=== PATIENT | male | born 1980 | race Caucasian/White ===

== ENCOUNTER → 2022-07-25 13:53 | Outpatient (CLI) | payer OTHER, SELFPAY ==
--- NOTE | 2022-07-25 | DI.MRI.S_ITS ---
PROCEDURE: MR SHOULDER LT WO/W CON INDICATIONS: Pain in left shoulder TECHNIQUE: Noncontrast oblique coronal T1 spin echo and T2 fast spin echo with fat saturation, oblique sagittal T1 spin echo and T2 fast spin echo with fat saturation, axial T1 spin echo and T2 fast spin echo with fat saturation through the shoulder. Post-contrast oblique coronal, oblique sagittal, and axial T1 spin echo with fat saturation through the shoulder. COMPARISON: None. FINDINGS: Image quality: Excellent. Rotator cuff: Mild supraspinatus tendinosis. The infraspinatus, teres minor, and subscapularis tendons are intact. No significant rotator cuff muscle atrophy. Bones and bursae: Lobulated [id number] signal is seen in the medullary canal of the proximal humerus spanning a length of approximately 8.7 cm. Interspersed fat is seen along the margins of the lesion. No surrounding edema. No significant cortical thinning or endosteal scalloping is seen. No acute trabecular bone injury or fracture. Mild to moderate degenerative changes are seen at the acromioclavicular joint. Trace subacromial/subdeltoid bursal fluid. No significant glenohumeral effusion. Capsule and soft tissues: No enhancing soft tissue mass. There is nondisplaced tearing of the posterosuperior labrum to the inferior and anteroinferior labrum. Lobular paralabral cysts are seen at the anteroinferior labrum measuring up to 6 mm. Mild tendinosis of the proximal biceps long head tendon. There is partial effacement of the rotator interval fat. Glenohumeral ligaments are within normal limits. IMPRESSION: 1. 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 No osseous edema or significant endosteal scalloping. Recommend follow-up radiographs to evaluate for exchange clerk time. 2. Nondisplaced tearing of the labrum extending from posterosuperior to inferior and anteroinferior. A few lobular paralabral cysts are seen at the anteroinferior labrum. 3. Mild proximal biceps long head tendinosis. 4. Mild supraspinatus tendinosis. No significant rotator cuff tendon tearing. 5. Mild to moderate acromioclavicular joint osteoarthrosis. Approved by: Kennedy Otero M.D. on 07/25/2022 at 15:03
== END ==
DX: S43.432A Superior glenoid labrum lesion of left shoulder, initial encounter (principal); M19.012 Primary osteoarthritis, left shoulder; M89.9 Disorder of bone, unspecified; M25.512 Pain in left shoulder
CPT/HCPCS: 73223; A9579